=== PATIENT | female | born 1975 | race Caucasian/White ===

== ENCOUNTER → 2018-06-03 | Day surgery (SDC) | payer OTHER ==
--- NOTE | 2018-06-05 14:49 | PATH ---
Surgical Pathology Report Patient Name: AUGUSTUS VAZQUEZ [facility]. Rec. #: [id number] /Age/Gender: 1975 (Age: 42) / F Account: [id number] Location: [facility] Taken: 06/03/2018 Received: 06/03/2018 Reported: 06/05/2018 Physicians: Juan Miller M.D. Specimen(s) Received A: RIGHT BREAST SPECIMEN WITH CALCIFICATIONS B: RIGHT BREAST SPECIMEN WITHOUT CALCIFICATIONS Clinical History Nonpalpable lesion Mammographic findings: Suspicious Final Diagnosis A. 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 B. 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 COMMENT: Immunohistochemical stain E-Cadherin done on block B2 highlighted the epithelium of hyperplasia, which supports ductal genotype. Immunohistochemistry stain E-cadherin performed and interpreted at [facility]. Positive and negative controls (internal if applicable) show appropriate results. Electronically Signed Kane Parrish M.D. Gross Description A. Received in formalin labeled "right breast with calcification," are 6 stephens-yellow, cylindrical portions of fibroadipose tissue ranging from 0.7-2.0 cm in length and averaging 0.3 cm in diameter. The specimens are submitted in toto in 2 cassettes. B. Received in formalin labeled "right breast without calcifications," are 7 stephens-yellow, cylindrical portions of fibroadipose tissue ranging from 0.7-2.0 cm in length and averaging 0.3 cm in diameter. The specimens are submitted in toto in 2 cassettes. Time to formalin fixation: 5 minutes Total formalin fixation time: Approximately 8 hours. 06/03/201806/03/2018
== END | disposition home or self-care (01) ==
LOC: FMAMMOTONE 08:40
PROVIDERS: ATTEND Surgery Surgical Oncology
PROC: 0HBT3ZX Excision of Right Breast, Percutaneous Approach, Diagnostic (ICD-10-PCS; principal; 2018-06-03)
DX: N60.11 Diffuse cystic mastopathy of right breast (principal); N60.31 Fibrosclerosis of right breast; N60.81 Other benign mammary dysplasias of right breast; N64.89 Other specified disorders of breast; R92.1 Mammographic calcification found on diagnostic imaging of breast
CPT/HCPCS: 19081; 87899; 88305-TC; 88342-TC; A4648